=== PATIENT | female | born 1965 | race Caucasian/White ===

== ENCOUNTER → 2017-08-02 | Day surgery (SDC) | payer BC ==
[~2017-08-02] MED LIST: Dexamethasone 4 MG/ML SDV IV ONE; Ondansetron 4 MG/2 ML SDV IV ONE; Promethazine 25 MG/ML SDV IV ONE; Propofol 200 MG/20 ML SDV IV ONE; Sodium Chloride 0.9% 500 ML IV SCH
[2017-08-02 13:08] VITALS: BP 101/71
--- NOTE | 2017-08-02 14:03 | OR ---
DATE OF OPERATION: 08/02/2017 PREOPERATIVE DIAGNOSIS: GASTROESOPHAGEAL REFLUX DISEASE. POSTOPERATIVE DIAGNOSIS: GASTROESOPHAGEAL REFLUX DISEASE. SURGEON: Andrea Bowden MD PROCEDURE: EGD WITH BIOPSIES X2, SUSAN. 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 COMPLICATIONS: None. SPECIMEN: 1. Antral biopsy x2. 2. SUSAN. FINDINGS: 1. Full-length EGD. 2. Recurrent hiatal hernia with nonobstructing Schatzki ring. 3. Mild antral gastritis without ulceration. RECOMMENDATIONS: The patient has already been placed on proton pump therapy and Carafate. She will need consideration for a repeat lap Judy. INDICATIONS: The patient has been having problems with reflux. She has had two prior lap Judy's. She is stating that she is starting to have a lot of heartburn issues and feeling like the food is getting hung up briefly in the distal chest. Dr. Frazier sent her for EGD. DESCRIPTION OF PROCEDURE: The patient was prepped and draped, placed in the left lateral decubitus position. A lubricated Olympus gastroscope was inserted over a bit and advanced to cricopharyngeus area and easily intubated in the esophagus. Esophageal lining was benign in its entire course. Z-line was crisp and sharp around 35.5 cm. There is a nonobstructing Schatzki's ring associated with a moderate-sized hiatal hernia. Significant spontaneous reflux was visualized throughout the whole time of the scope. The scope was easily passed into the stomach through the pylorus into the 2nd portion of the duodenum. This and the duodenal bulb were essentially benign. There may have been some very mild duodenitis in the bulb but minimal. The scope was brought back into the stomach and retroflexed. The upper fundus and cardia were otherwise unremarkable. Upon straightening, a thorough evaluation showed no polyps, mass, or ulcerations. The patient does have some distal antral gastritis, very mild. Biopsy x2 were taken along with a SUSAN test. Air was suctioned, scope removed without complication. COLE/OSMAR /[id number]
== END ==
LOC: CC.SDS 11:21
PROVIDERS: ATTEND Family Medicine
DX: K29.50 Unspecified chronic gastritis without bleeding (principal); K44.9 Diaphragmatic hernia without obstruction or gangrene; K22.2 Esophageal obstruction; Z88.1 Allergy status to other antibiotic agents; Z88.2 Allergy status to sulfonamides; Z79.899 Other long term (current) drug therapy
CPT/HCPCS: 43239; 87081; J1100; J2405; J2550; J2704; J7040

== ENCOUNTER → 2022-09-21 | Day surgery (SDC) | payer BC ==
[~2022-09-21] MED LIST changes: -Dexamethasone 4 MG/ML SDV IV ONE; +Ketamine 200 MG/20 ML MDV ONE; +Lidocaine 2% 5 ML SDV ONE; +Metoclopramide 10 MG/2 ML SDV ONE; -Ondansetron 4 MG/2 ML SDV IV ONE; +Ondansetron 4 MG/2 ML SDV ONE; -Promethazine 25 MG/ML SDV IV ONE; -Propofol 200 MG/20 ML SDV IV ONE; +Propofol 200 MG/20 ML SDV ONE; -Sodium Chloride 0.9% 500 ML IV SCH; +ePHEDrine 50 MG/ML SDV ONE
[2022-09-21] MEDS: Lactated Ringers 1,000 ML IV SCH (08:01)
[2022-09-21 09:52] VITALS: BP 113/77; PULSE 62
== END ==
LOC: CC.SDS 07:52
PROVIDERS: ATTEND Family Medicine
DX: D12.3 Benign neoplasm of transverse colon (principal); K57.30 Diverticulosis of large intestine without perforation or abscess without bleeding; I10 Essential (primary) hypertension; K21.9 Gastro-esophageal reflux disease without esophagitis; E78.5 Hyperlipidemia, unspecified; E03.9 Hypothyroidism, unspecified; G47.00 Insomnia, unspecified; J45.909 Unspecified asthma, uncomplicated; M19.90 Unspecified osteoarthritis, unspecified site; M81.8 Other osteoporosis without current pathological fracture; E66.9 Obesity, unspecified; Z68.26 Body mass index [BMI] 26.0-26.9, adult; Z88.0 Allergy status to penicillin; Z88.2 Allergy status to sulfonamides; Z88.1 Allergy status to other antibiotic agents; Z88.6 Allergy status to analgesic agent; Z79.899 Other long term (current) drug therapy; Z79.84 Long term (current) use of oral hypoglycemic drugs
CPT/HCPCS: 00811; J2405; J2704; J2765; J3490; J7120